=== PATIENT | female | born 1980 | race Hispanic/Latino ===

== ENCOUNTER 2017-05-13 12:39 | Outpatient (CLI) | payer OTHER ==
--- NOTE | 2017-05-13 15:11 | ULT ---
OBSTETRICAL ULTRASOUND: DATE: 05/13/17. COMPARISON: None. HISTORY: A 37-year-old female undergoing evaluation for growth. TECHNIQUE: Multiplanar, tavera scale, sonographic imaging of the gravid uterus obtained. The umbilical artery is assessed with color flow/spectral analysis. FINDINGS: There is a single intrauterine gestation demonstrating a vertex presentation. heart rate is 1 49 b.p.m. Four-chamber heart view appears grossly unremarkable. kidneys and urinary bladder are within normal limits. Amniotic fluid index is approximately 22.2 cm. Placenta is located in the fundus demonstrating no e vidence for previa or abruption. Umbilical artery assessment demonstrates a peak systolic velocity of 30-37 cm/s and a cephalic/diast olic ratio of 2.05-2.2. intracranial contents, stomach, and nose/lips appear within normal limits. BIOMETRY: BPD 9.5 cm, 38 weeks 4 days HC 33.8 cm, 38 weeks 6 days AC 34.6 cm, 38 weeks 3 days FL 7.3 cm, 37 weeks 1 day Average based on ultrasound is 38 weeks 0 days with an estimated date of delivery on 05/27/17. Matilda mated weight is 33 gm +/- 508 gm. The spine is not well assessed on this examination. IMPRESSION: Single intrauterine gestation as detailed above. Umbilical artery Doppler assessment as above. POS: [facility]
== END 2017-05-13 12:40 | disposition home or self-care (01) ==
LOC: ULT 12:39
PROVIDERS: ATTEND Family Medicine
DX: O09.523 Supervision of elderly multigravida, third trimester (principal)
CPT/HCPCS: 76805

== ENCOUNTER 2025-03-24 11:44 | Outpatient (CLI) | payer SELFPAY ==
[2025-03-24 13:13] LABS: #Basophils 0.04 10x3/uL (0.0-0.2); #Eosinophils 0.20 10x3/uL (0.0-0.7); #Monocytes 0.37 10x3/uL (0.11-0.59); #Neutrophils 4.56 10x3/uL (1.40-6.50); %Basophils 0.6 % (0.0-1.0); %Eosinophils 2.8 % (0.0-10.0); %Lymphocytes 27.8 % (21.0-51.0); %Monocytes 5.2 % (0.0-10.0); %Neutrophils 63.5 % (42.0-75.0); Hematocrit 38.8 % (36.0-47.0); Hemoglobin 13.6 g/dL (12.0-16.0); Mean Corpuscular Hemoglobin 30.2 pg (27.0-31.0); Mean Corpuscular Volume 86.2 fL (78.0-98.0); Platelet Count 278 10x3/uL (130-400); Red Blood Cell (RBC) Count 4.50 mill/uL (4.20-5.40); White Blood Cell (WBC) Count 7.17 10x3/uL (4.8-10.8)
[2025-03-24 13:25] LABS: Anion Gap 16 mmol/L (10-20); BUN (Urea Nitrogen) 8 mg/dL (7.0-18.7); Calc. Creatinine Clearance 0 mL/min (70-130); Calcium 9.4 mg/dL (7.8-10.44); Carbon Dioxide 26 mmol/L (22-29); Chloride 100 mmol/L (98-107); Glucose 172 mg/dL (70-105); Potassium 3.7 mmol/L (3.5-5.1); Sodium 138 mmol/L (136-145)
[2025-03-24 13:27] LABS: INR-International Normal Ratio 1.0; PTT 31.4 sec (22.9-36.1); Prothrombin Time 13.6 sec (12.0-14.7)
[2025-03-24 13:28] LABS: Bacteria/HPF None Seen HPF (None Seen); Glucose, Urine (Dipstick) 300 mg/dL (Negative); Leukocyte Negative Leu/uL (Negative); Protein, Urine (Dipstick) 20 mg/dL (Neg-Trace); RBC/HPF 0-3 HPF (0-3); Specific Gravity, Urine 1.029 (1.002-1.036); WBC/HPF 0-3 HPF (0-3)
[2025-03-24 14:02] LABS: BHCG - Serum Negative (NEGATIVE); Pregs Control Background? CLEAR/WHITE (CLR/WHITE); Pregs Control Bar Appear? YES (CONTROL BAR)
== END 2025-03-24 11:45 | disposition home or self-care (01) ==
LOC: LABBT 11:44
PROVIDERS: ATTEND Urology
DX: Z01.818 Encounter for other preprocedural examination (principal); N36.8 Other specified disorders of urethra
CPT/HCPCS: 80048; 81001; 84703; 85025; 85610; 85730; 87086; 93005; 93010